=== PATIENT | female | born 1960 | race Caucasian/White ===

== ENCOUNTER 2017-08-20 12:34 | Day surgery (SDC) | payer OTHER | END 2017-08-20 14:27 | disposition home or self-care (01) | LOC: GIL 12:34 | DX: Z12.11 Encounter for screening for malignant neoplasm of colon (principal); E78.5 Hyperlipidemia, unspecified; E11.9 Type 2 diabetes mellitus without complications | CPT/HCPCS: 45378; 82962 ==